=== PATIENT | male | born 1995 | race African-American/Black ===

== ENCOUNTER 2017-10-21 13:03 | Emergency (ER) | payer OTHER ==
[~2017-10-21] VITALS: Ht 175.3 cm; Wt 84.1 kg
[2017-10-21] MEDS ORDERED: NORCO 5/3251 TABLET PO (15:19)
[2017-10-21 15:56] VITALS: BP 163/91
== END 2017-10-21 15:57 | disposition home or self-care (01) ==
LOC: EME 13:03
DX: S93.401A Sprain of unspecified ligament of right ankle, initial encounter (principal); X50.9XXA Other and unspecified overexertion or strenuous movements or postures, initial encounter
CPT/HCPCS: 73590; 73610; 93971; 99281; 99284